=== PATIENT | female | born 1955 | race Caucasian/White ===

== ENCOUNTER → 2021-04-03 | Outpatient (CLI) | payer BC ==
[~2021-04-03] MED LIST: ALBUTEROL SULFAT3 M3 IH; CALTRATE-600 W600 MG PO; CARDI-OMEGA1000 MG PO; CRESTOR 10MG10 MG PO; DULERA1 AR1 IH; GLUCOPHAGE850 MG/TAB PO; HYZAAR 50-12.1 UDTAB PO; NEXIUM 40MG40 MG PO; NORVASC 5MG5 MG/TAB PO; PAXIL 30MG30 MG PO; SINGULAIR 110 MG/TAB PO; TUDORZA IH; ULTRAM 50MG TAB50 MG PO; VITAMIN D31000 I1 PO; ZYRTEC 10MG10 MG PO
== END ==
LOC: MC.RAD 14:45
DX: Z12.31 Encounter for screening mammogram for malignant neoplasm of breast (principal)